=== PATIENT | male | born 1980 | race Hispanic/Latino ===

== ENCOUNTER 2023-02-22 08:05 | Outpatient (CLI) | payer BC ==
[2023-02-22] MEDS ORDERED: Iopamidol 300 61% 100 ML VIAL FS ONE (09:18)
== END 2023-02-22 08:06 | disposition home or self-care (01) ==
LOC: CSHCT 08:05
PROVIDERS: ATTEND Family Medicine
DX: R10.9 Unspecified abdominal pain (principal); K63.9 Disease of intestine, unspecified; K76.0 Fatty (change of) liver, not elsewhere classified
CPT/HCPCS: 74160

== ENCOUNTER 2024-08-14 08:39 | Outpatient (CLI) | payer BC | END 2024-08-14 08:40 | disposition home or self-care (01) | LOC: CSHSLEEP 08:39 → EDSTATUS 09:48 | PROVIDERS: ATTEND Family Medicine | DX: G47.33 Obstructive sleep apnea (adult) (pediatric) (principal); R53.83 Other fatigue; E66.9 Obesity, unspecified; Z68.33 Body mass index [BMI] 33.0-33.9, adult; R06.83 Snoring | CPT/HCPCS: 95800 ==